=== PATIENT | male | born 1960 | race Two or more races ===

== ENCOUNTER 2020-02-11 13:46 | Emergency (ER) | payer OTHER ==
--- NOTE | 2020-02-11 14:16 | ED Physician Documentation ---
PD HPI LOWER EXT INJURY - Stated complaint Stated Complaint: FALL LT KNEE LAC - Chief complaint Chief Complaint: Ext Problem - History obtained from History obtained from: Patient - History of Present Illness PD HPI LOW EXT INJURY LOCATION: Left, Knee, Other (extension ladder gave out and he fell with it onto hands and knees. Abrasions of both shins, forearms, and some of left elbow with swelling. Main injury is left knee with abrasion and laceration.) Type of injury: Fall (from/with ladder) Where injury occurred: Home Timing - onset: How many hours ago (1), Today Timing - details: Abrupt onset, Still present Worsened by: Moving (able to walk without pain except the skin movement at the knee.), Palpating Associated symptoms: No: Weakness, Numbness Contributing factors: Other (denies injury to head, neck, chest, abd.). No: Anticoagulated Similar symptoms before: Has not had sx before Review of Systems Constitutional: denies: Fever Nose: denies: Rhinorrhea / runny nose, Congestion Throat: denies: Sore throat Cardiac: denies: Chest pain / pressure Respiratory: denies: Cough GI: denies: Abdominal Pain Musculoskeletal: denies: Neck pain, Back pain Neurologic: denies: Altered mental status, Headache PD PAST MEDICAL HISTORY - Past Medical History Cardiovascular: None Respiratory: None Neuro: None Endocrine/Autoimmune: None - Present Medications Home Medications: Ambulatory Orders Medication Instructions Recorded Confirmed Sertraline [Zoloft] 02/11/20 buPROPion [Wellbutrin Sr] 02/11/20 02/11/20 metFORMIN [Glucophage] 02/11/20 - Allergies Allergies/Adverse Reactions: Allergies Allergy/AdvReac Type Severity Reaction Status Date / Time shrimp Allergy Itching Verified 02/11/20 15:04 PD ED PE NORMAL - Vitals Vital signs reviewed: Yes - General General: Alert and oriented X 3, No acute distress, Well developed/nourished - HEENT HEENT: Atraumatic - Neck Neck: Supple, no meningeal sign, No adenopathy - Cardiac Cardiac: RRR, No murmur - Respiratory Respiratory: Clear bilaterally, Other (no chestwall tenderness) - Abdomen Abdomen: Soft, Non tender - Back Back: No CVA TTP - Derm Derm: Normal color, Warm and dry - Extremities Extremities: Other (left elbow with bursal effusion and abrasion but no bony tenderness and full ROM including extension. Shins with abrasions without bony tenderness. Left knee with abrasion and anterior laceration 2.5 cm, without FB nor active bleeding. It overlies the patella. No bony tenderness. Full ext knee. ) - Neuro Neuro: Alert and oriented X 3, No motor deficit, Normal speech Results - Vitals Vitals: Vital Signs - 24 hr 02/11/20 02/11/20 14:03 15:43 Temperature 37.1 C 36.8 C Heart Rate 75 70 Respiratory 20 18 Rate Blood Pressure 174/76 H 136/93 H O2 Saturation 99 95 Oxygen O2 Source Room air Procedures - Laceration (location) left anterior knee Length in cm: 2.5 Wound type: Curved, Into subcut fat, Clean Neurovascular status: Sensory intact, Motor intact, Vascular intact Tendon involvement: No: Tendon Injury Anesthesia: Lidocaine 1% with epi Wound Preparation: Wound explored, To the base, Wound edges modified. No: FB identified Skin layer closure: Nylon, Running, Size #-0 - enter number (4), Sutures - enter # (8) PD MEDICAL DECISION MAKING - ED course Complexity details: considered differential (some bursal effusion left elbow but full ROM of the joint. Abrasions shins and elbows. Main injury is laceration of the left knee. ), d/w patient Departure - Departure Disposition: 01 Home, Self Care Clinical Impression: Multiple abrasions Fall from ladder Qualifiers: Encounter type: initial encounter Qualified Code(s): W11.XXXA - Fall on and from ladder, initial encounter Knee laceration Qualifiers: Encounter type: initial encounter Laterality: left Qualified Code(s): S81.012A - Laceration without foreign body, left knee, initial encounter Condition: Stable Record reviewed to determine appropriate education?: Yes Instructions: ED Laceration Ext Sutr Stap Tape Comments: It is okay to wash and shower. Clean off the wound twice a day with soap and water, or peroxide and water. Apply some antibiotic ointment to it to keep it moist. Also to watch for signs of infection such as purulence, redness or increasing pain. Return to your primary care or the ER at the specified time for suture removal. Suture removal 10 to 14 days. Tylenol or naproxen if needed for pains. Discharge Date/Time: 02/11/20 15:54
[2020-02-11] MEDS ORDERED: NAPROXEN 250 MG TABLET PO STA (14:44)
[2020-02-11] MEDS ORDERED: ACETAMINOPHEN 325 MG TABLET PO STA (14:44)
[2020-02-11 15:44] VITALS: BP 136/93
== END 2020-02-11 15:54 | disposition home or self-care (01) ==
LOC: ED 13:46
DX: S81.012A Laceration without foreign body, left knee, initial encounter (principal); S50.312A Abrasion of left elbow, initial encounter; S80.812A Abrasion, left lower leg, initial encounter; S80.811A Abrasion, right lower leg, initial encounter; S50.812A Abrasion of left forearm, initial encounter; S50.811A Abrasion of right forearm, initial encounter; W11.XXXA Fall on and from ladder, initial encounter; Y92.009 Unspecified place in unspecified non-institutional (private) residence as the place of occurrence of the external cause; M25.422 Effusion, left elbow
CPT/HCPCS: 12001; 99282; 99284; A9270

== ENCOUNTER 2023-02-03 15:39 | Emergency (ER) | payer OTHER ==
--- OUTSIDE RECORDS SUMMARY | 2023-02-03 16:19 | EXTERNAL MEDICAL SUMMARY RPT | Continuity of Care Document ---
Author Name Unknown Address [address] [place] [address] Phone Organization [facility] Address [address] [place] [address] Phone Care Team Providers Care Bellows Assembler Name Role Phone Unavailable Unavailable Unavailable StewartMikey Unavailable Unavailable Allergies and Intolerances date description facility reaction severity (no date) [facility] (no reaction) (no se verity) Medications date description facility 2023-01-08 00:00 [facility] 2023-01-08 00:00 [facility] 2022-11-08 00:00 [facility] Problems date description facility 2023-01-08 18:51 Encounter for screen ing for malignant neoplasm of [facility] 2023-01-09 00:21 Encounter for screen ing for malignant neoplasm [facility] Results/Labs test date facility value unit notes Social History date description facility 2023-01-08 00:00 Never smoked tobacco ([facility] Vital Signs date measurement value units 2023-01-08 00:00 BMI 30.9 kg/m2 2023-01-08 00:00 BP_diastolic 80 mmHg 2023-01-08 00:00 BP_systolic 130 mmHg 2023-01-08 00:00 heart_rate 73 /min 2023-01-08 00:00 height_metric 166.09 cm 2023-01-08 00:00 height_standard 65.39 in 2023-01-08 00:00 o2_saturation 97 % 2023-01-08 00:00 temperature_metric 36 C 2023-01-08 00:00 temperature_standard 96.8 F 2023-01-08 00:00 weight_metric 85.44 kg 2023-01-08 00:00 weight_standard 188.36 lb
[2023-02-03] MEDS ORDERED: BUFFERED LIDOCAINE 10 ML SYRINGE SUBQ STA (16:52)
[2023-02-03] MEDS ORDERED: TETANUS/DIPHTHERIA/PERTUSSIS 0.5 ML SYRINGE IM ONE (16:52)
--- NOTE | 2023-02-03 16:55 | ED Physician Documentation ---
PD HPI UPPER EXT INJURY - Stated complaint Stated Complaint: RT HAND LAC - Chief complaint Chief Complaint: Laceration - History obtained from History obtained from: Patient (Ambidextrous gentleman [place] his right fourth finger with a wound on the tip just prior to arrival. No other injuries.) PD PAST MEDICAL HISTORY - Past Medical History Cardiovascular: None Respiratory: None Neuro: None Endocrine/Autoimmune: None Psych: Depression, Anxiety - Past Surgical History Past Surgical History: Yes General: Other - Present Medications Home Medications: Ambulatory Orders Medication Instructions Recorded Confirmed Sertraline [Zoloft] 02/11/20 buPROPion [Wellbutrin Sr] 02/11/20 02/11/20 metFORMIN [Glucophage] 02/11/20 - Allergies Allergies/Adverse Reactions: Allergies Allergy/AdvReac Type Severity Reaction Status Date / Time shrimp Allergy Itching Verified 02/03/23 15:47 - Social History Does the pt smoke?: No Smoking Status: Never smoker Does the pt drink ETOH?: No Does the pt have substance abuse?: No PD ED PE NORMAL - Vitals Vital signs reviewed: Yes - General General: Alert and oriented X 3, No acute distress - Extremities Extremities: Other (1 cm bleeding but fairly shallow laceration on the pulp of the right fourth finger without nail involvement.) - Neuro Neuro: Alert and oriented X 3, Normal speech Results - Vitals Vitals: Vital Signs - 24 hr 02/03/23 15:47 Temperature 36.7 C Heart Rate 83 Respiratory 16 Rate Blood Pressure 130/87 H O2 Saturation 94 Oxygen O2 Source Room air Procedures - Laceration (location) R 4th finger Length in cm: 1 Wound type: Linear, Into subcut fat Neurovascular status: Sensory intact, Motor intact, Vascular intact Tendon involvement: Tendon intact Anesthesia: Lidocaine 1% Wound preparation: Hibiclens, Irrigated copiously NS Skin layer closure: Nylon, Interrupted, Size #-0 - enter number (5-0), Sutures - enter # (5) Other: Patient tolerated well, No complications, Neurovascular intact, Tetanus booster given Departure - Departure Disposition: 01 Home, Self Care Clinical Impression: Finger laceration Qualifiers: Encounter type: initial encounter Finger: ring finger Damage to nail status: without damage Foreign body presence: without foreign body Laterality: right Qualified Code(s): S61.214A - Laceration without foreign body of right ring finger without damage to nail, initial encounter Condition: Good Record reviewed to determine appropriate education?: Yes Instructions: ED Laceration Hand Comments: Come back for any signs of infection which would include: Redness, swelling, drainage, increased pain, or fevers. You can wash it soap and water. Keep it covered and moist with bacitracin ointment which is available over the counter; avoid neosporin. Follow-up with your physician in 14 days for suture removal. Forms: PCP List
[2023-02-03] MEDS ORDERED: lidocaine 1% 20 ML MDV SUBQ ONE (17:07)
[2023-02-03 17:47] VITALS: BP 128/86; O2SAT 96
== END 2023-02-03 17:37 | disposition home or self-care (01) ==
LOC: ED 15:39
DX: S61.214A Laceration without foreign body of right ring finger without damage to nail, initial encounter (principal); W26.0XXA Contact with knife, initial encounter; Y92.832 Beach as the place of occurrence of the external cause; Z23 Encounter for immunization
CPT/HCPCS: 12001; 90471; 99281

== ENCOUNTER 2023-11-01 15:14 | Emergency (ER) | payer MEDICARE, OTHER ==
--- NOTE | 2023-11-01 16:37 | ED Physician Documentation ---
PD HPI SKIN - Stated complaint Stated Complaint: LIP LAC - Chief complaint Chief Complaint: Laceration - Additional information Additional information: 63-year-old male presents emergency department for chin laceration. Patient said that he was working on his boat and a spring flung back and hit him on his chin and now laceration that patient is worried went all the way through. Patient had no loss of consciousness he says he has some jaw tenderness but he is able to open and close without any difficulty. He is not on blood thinners. Bleeding is well-controlled. He also has a laceration on the inside of his lip. Teeth have not been affected. PD PAST MEDICAL HISTORY - Past Medical History Cardiovascular: None Respiratory: None Neuro: None Endocrine/Autoimmune: None Psych: Depression, Anxiety - Past Surgical History Past Surgical History: Yes General: Other - Present Medications Home Medications: Ambulatory Orders Medication Instructions Recorded Confirmed Sertraline [Zoloft] 25 mg PO ONCE 02/11/20 11/01/23 buPROPion [Wellbutrin Sr] 5 mg PO DAILY 02/11/20 11/01/23 metFORMIN [Glucophage] 500 mg PO BID 02/11/20 11/01/23 Semaglutide [Ozempic] 1 mg SQ UD 11/01/23 11/01/23 - Allergies Allergies/Adverse Reactions: Allergies Allergy/AdvReac Type Severity Reaction Status Date / Time shrimp Allergy Itching Verified 11/01/23 15:36 - Social History Does the pt smoke?: No Smoking Status: Never smoker Does the pt drink ETOH?: No Does the pt have substance abuse?: No - Immunizations Immunizations are current?: Yes PD ED PE NORMAL - Vitals Vital signs reviewed: Yes - General General: Alert and oriented X 3, No acute distress, Well developed/nourished - HEENT HEENT: PERRL, Other (Bottom lip laceration not including the vermilion border that goes all the way through bottom lip. Able to visualize laceration on the inside of the lip and outside of lip. Posterior lip incision is linear and clean bleeding is well-controlled.) PD ED PE EXPANDED - HEENT HEENT: PERRL, Dentition normal, Lip laceration. No: Dental trauma Results - Vitals Vitals: Vital Signs - 24 hr 11/01/23 11/01/23 15:36 17:01 Temperature 36.5 C Heart Rate 82 89 Respiratory 16 20 Rate Blood Pressure 144/85 H 137/89 H O2 Saturation 96 100 Oxygen O2 Source Room air Procedures - Laceration (location) bottom lip laceration Length in cm: 0.5 (bottom lip laceration penetrating all the way through) Wound type: Linear, Clean Wound preparation: Irrigated copiously NS Skin layer closure: Dermabond, Steri strips (2) Other: Patient tolerated well, No complications, Tetanus UTD PD Medical Decision Making - ED course ED course: 63-year-old male presents emergency department for bottom lip laceration. Originally it looked like it was on the chin but upon further evaluation it appears to be on the bottom lip and it does appear to have penetrated all the way through. The incision on the inside of the lip does not appear to need any sort of sutures or other approximation as it is a clean laceration and does not appear to be in an area where his teeth will make any worse. I was able to approximate the outer portion of the laceration with Dermabond and 2 Steri- Strips. Patient is not on blood thinners does not appear to have any sort of neurological deficits not making me concerned for intracranial hemorrhages I do not believe that a head CT is warranted. He did originally complain of some mild left jaw pain but patient is able to open close without any popping or crepitus there is some mild tenderness he was offered Tylenol ibuprofen here in the ER but kindly declined. I do not believe any imaging is warranted of his jaw. Patient understands return precautions and how to manage his wound at home when to remove Steri-Strips and Dermabond and told to follow-up with primary care provider. Departure - Departure Disposition: 01 Home, Self Care Clinical Impression: Laceration of chin Instructions: ED Laceration Facial Skin Glue Comments: Thank for trusting us with your care. We have placed a total of 2 Steri-Strips on your lower chin as well as some Dermabond you can remove these after 7 days if the Steri-Strips and glue are still there. You can cleanse the area as you normally would although avoiding water will help with the Steri-Strips and Dermabond stay on longer although it is okay for it to get wet. Watch out for signs and symptoms of infection which include redness, swelling, drainage that is yellow or green collecting underneath the glue, fevers or chills. Please come back to the ER if you are having any of the symptoms or any other concerning symptoms. Wishing you a speedy recovery. Eat a soft diet while you are changes recovering. You can take 1000 mg of Tylenol every 8 hours and 600 mg of ibuprofen every 6 hours for pain and discomfort apply ice 20 minutes on 1 hour off to your jaw and chin as needed. Forms: PCP List Discharge Date/Time: 11/01/23 17:01
[2023-11-01 17:02] VITALS: BP 137/89; O2SAT 100
== END 2023-11-01 17:01 | disposition home or self-care (01) ==
LOC: ED 15:14
DX: S01.511A Laceration without foreign body of lip, initial encounter (principal); W20.8XXA Other cause of strike by thrown, projected or falling object, initial encounter; Y93.89 Activity, other specified; Y92.814 Boat as the place of occurrence of the external cause
CPT/HCPCS: 12011; 99281